=== PATIENT | female | born 1985 ===

== ENCOUNTER → 2020-06-07 | Outpatient (CLI) | payer OTHER | END | disposition home or self-care (01) | LOC: STAR 14:00 | PROVIDERS: ATTEND Anesthesiology | DX: Z20.822 Contact with and (suspected) exposure to COVID-19 (principal) | CPT/HCPCS: U0003 ==

== ENCOUNTER 2020-06-08 00:02 | Inpatient (IN) | payer OTHER ==
[~2020-06-08] VITALS: Ht 180.3 cm; Wt 96.0 kg
[2020-06-08] MEDS ORDERED: CALCIUM CARBONATE 500 MG TAB.CHEW PO PRN (00:30)
[2020-06-08] MEDS ORDERED: TERBUTALINE 1 MG/ML, 1ML SQ PRN (00:30)
[2020-06-08] MEDS ORDERED: FENTANYL PF 100 MCG/2ML IVPush PRN (00:30)
[2020-06-08] MEDS ORDERED: OXYTOCIN 30U/ 0.9% NaCL 500ML 500 ML IV ONE (00:30)
[2020-06-08] MEDS ORDERED: OXYTOCIN 30U/ 0.9% NaCL 500ML 500 ML IV PRN (00:30)
[2020-06-08] MEDS ORDERED: FENTANYL PF 100 MCG/2ML IV PRN (00:30)
[2020-06-08] MEDS ORDERED: D5%-LACTATED RINGERS 1,000 ML IV SCH (00:30)
[2020-06-08] MEDS ORDERED: TERBUTALINE 1 MG/ML, 1ML IVPush PRN (00:30)
[2020-06-08] MEDS ORDERED: LACTATED RINGERS 1,000 ML IV SCH ×2 (00:30→05:30)
[2020-06-08] MEDS ORDERED: ONDANSETRON 2MG/ML, 2ML IVPush PRN ×2 (00:30→05:30)
[2020-06-08] MEDS ORDERED: PLEASE ENTER ALLERGIES MC SCH (00:30)
[2020-06-08] MEDS ORDERED: PENICILLIN GK 5,000,000 UNITS in DEXTROSE 5% 100 ML IVPB ONE (00:30)
[2020-06-08] MEDS ORDERED: SODIUM CITRATE/CITRIC ACID 30 ML UDC PO PRN (00:30)
[2020-06-08] MEDS ORDERED: NEWBORN KIT ONE (00:34)
[2020-06-08] MEDS ORDERED: OXYTOCIN 30U/ 0.9% NaCL 500ML 500 ML ONE (00:34)
[2020-06-08] MEDS ORDERED: LIDOCAINE 1%, 20ML ONE (00:34)
[2020-06-08] MEDS ORDERED: MISOPROSTOL 200 MCG TABLET ONE (00:34)
[2020-06-08 00:41] LABS: BASOPHILS % (AUTO) 1 % (0-1); EOSINOPHILS % (AUTO) 2 % (1-7); LYMPHOCYTES % (AUTO) 17 % (22-44); MD NO; MEAN CORPUSCULAR HEMOGLOBIN 31.5 pg (27.0-34.8); MEAN CORPUSCULAR HGB CONC 34.2 g/dL (32.4-35.8); MEAN PLATELET VOLUME 9.1 fL (7.4-10.4); MONOCYTES % (AUTO) 10 % (2-9); NEUTROPHILS % (AUTO) 70 % (42-75); PLATELET COUNT 135 x10^3/uL (130-400); RED BLOOD COUNT 4.19 x10^6/uL (3.82-5.3); RED CELL DISTRIBUTION WIDTH 14.7 % (9.6-15.2)
[2020-06-08 02:02] LABS: ALANINE AMINOTRANSFERASE 22 U/L (12-78); ALBUMIN 2.7 g/dL (3.4-5.0); ANION GAP 8 mmol/L (5-15); CALCIUM 8.9 mg/dL (8.5-10.1); CHLORIDE 110 mmol/L (98-107); CREATININE 0.85 mg/dL (0.55-1.02)
[2020-06-08 02:04] LABS: ALKALINE PHOSPHATASE 191 U/L (45-117); BILIRUBIN,TOTAL 0.3 mg/dL (0.2-1.0); TOTAL PROTEIN 6.9 g/dL (6.4-8.2)
[2020-06-08] MEDS ORDERED: BUPIVACAINE 0.25% ONE (03:35)
[2020-06-08] MEDS ORDERED: FENTANYL/BUPIV./NS/PF 250 ML EPIDCONT ONE (03:35)
[2020-06-08 03:43] LABS: CREATININE,URINE RANDOM 48.6 mg/dL
[2020-06-08] MEDS: PENICILLIN GK 2,500,000 UNITS in DEXTROSE 5% 100 ML IVPB SCH ×3 (04:53→12:28)
[2020-06-08] MEDS ORDERED: EPHEDRINE 50 MG/ML, 1ML IVPush PRN (05:30)
[2020-06-08] MEDS ORDERED: FENTANYL/BUPIV./NS/PF 250 ML EPIDCONT SCH (05:30)
[2020-06-08] MEDS ORDERED: DIPHENHYDRAMINE 50 MG/ML, 1ML IVPush PRN (05:30)
[2020-06-08] MEDS ORDERED: LACTATED RINGERS 1,000 ML IVBOLUS PRN (05:30)
[2020-06-08] MEDS ORDERED: NALOXONE 0.4 MG/ML, 1ML IVPush PRN (05:30)
[2020-06-08] MEDS ORDERED: IBUPROFEN 600 MG TABLET ONE (16:13)
[2020-06-08] MEDS ORDERED: IBUPROFEN 200 MG TABLET PO ONE (16:30)
[2020-06-08] MEDS: AMPICILLIN 2 GM in SODIUM CHLORIDE 0.9% 100 ML IV SCH ×2 (16:59→22:59)
[2020-06-08] MEDS ORDERED: GENTAMICIN PER PHARMACY MC PRN (17:00)
[2020-06-08] MEDS ORDERED: PHARMACOKINETIC CONSULTATION MC ONE (17:30)
[2020-06-08] MEDS ORDERED: PHARMACOKINETIC MONITORING MC PRN (17:30)
[2020-06-08] MEDS ORDERED: GENTAMICIN 200 MG in SODIUM CHLORIDE 0.9% 50 ML IV ONE (17:30)
[2020-06-08 18:20] VITALS: BP 104/71
[2020-06-08 19:20] VITALS: BP 105/70
[2020-06-08] MEDS ORDERED: ACETAMINOPHEN 325 MG TABLET PO PRN (21:00)
[2020-06-08] MEDS: OXYTOCIN 30U/ 0.9% NaCL 500ML 500 ML IV SCH (21:00)
[2020-06-08] MEDS ORDERED: MISOPROSTOL 200 MCG TABLET PR PRN (21:00)
[2020-06-08] MEDS ORDERED: OXYcodone IR 5MG TABLET PO PRN (21:00)
[2020-06-08] MEDS ORDERED: SIMETHICONE 80 MG CHEW TAB PO PRN (21:00)
[2020-06-08] MEDS: IBUPROFEN 600 MG TABLET PO PRN (22:57)
[2020-06-08] MEDS: DOCUSATE 100 MG CAPSULE PO PRN (22:57)
[2020-06-08 23:40] VITALS: BP 103/69
[2020-06-09 01:16] LABS: BASOPHILS % (AUTO) 0 % (0-1); EOSINOPHILS % (AUTO) 0 % (1-7); LYMPHOCYTES % (AUTO) 9 % (22-44); MEAN CORPUSCULAR HEMOGLOBIN 31.5 pg (27.0-34.8); MEAN CORPUSCULAR HGB CONC 34.2 g/dL (32.4-35.8); MEAN PLATELET VOLUME 9.1 fL (7.4-10.4); MONOCYTES % (AUTO) 6 % (2-9); NEUTROPHILS % (AUTO) 85 % (42-75); PLATELET COUNT 115 x10^3/uL (130-400); RED BLOOD COUNT 2.86 x10^6/uL (3.82-5.3); RED CELL DISTRIBUTION WIDTH 14.8 % (9.6-15.2)
[2020-06-09] MEDS: GENTAMICIN 140 MG in SODIUM CHLORIDE 0.9% 50 ML IV SCH ×2 (01:46→10:14)
[2020-06-09 01:57] LABS: MD SCAN
[2020-06-09 03:50] VITALS: BP 100/64
[2020-06-09] MEDS: AMPICILLIN 2 GM in SODIUM CHLORIDE 0.9% 100 ML IV SCH ×2 (05:12→11:54)
[2020-06-09] MEDS: IBUPROFEN 600 MG TABLET PO PRN ×3 (05:12→17:35)
[2020-06-09] MEDS: OXYTOCIN 30U/ 0.9% NaCL 500ML 500 ML IV SCH ×2 (07:00→17:00)
[2020-06-09 07:55] VITALS: BP 98/64
[2020-06-09] MEDS ORDERED: PRENATAL VIT/IRON/FA 1 EACH TABLET PO SCH (09:00)
[2020-06-09] MEDS: DOCUSATE 100 MG CAPSULE PO PRN (10:13)
[2020-06-09 11:20] VITALS: BP 106/68
[2020-06-09 16:42] VITALS: BP 101/67
[2020-06-09 20:00] VITALS: BP_SYST 111; BP_SYST 115; BP_DIAS 67; BP_DIAS 70
[2020-06-10] MEDS: IBUPROFEN 600 MG TABLET PO PRN ×2 (00:19→06:14)
[2020-06-10] MEDS: OXYTOCIN 30U/ 0.9% NaCL 500ML 500 ML IV SCH (03:00)
[2020-06-10 07:30] VITALS: BP 103/69
[2020-06-10] MEDS ORDERED: IBUP-1222 PO (11:13)
[2020-06-10] MEDS ORDERED: DOCU-131 PO (11:14)
== END 2020-06-10 13:40 | disposition home or self-care (01) | DRG 768 ==
LOC: LDOP 00:02 → LDIP 00:21 → 2NW 18:01
PROVIDERS: ADMIT Obstetrics & Gynecology; ATTEND Obstetrics & Gynecology
PROC: 0DQR0ZZ Repair Anal Sphincter, Open Approach (ICD-10-PCS; principal; 2020-06-08)
PROC: 10E0XZZ Delivery of Products of Conception, External Approach (ICD-10-PCS; 2020-06-08)
PROC: 10907ZC Drainage of Amniotic Fluid, Therapeutic from Products of Conception, Via Natural or Artificial Opening (ICD-10-PCS; 2020-06-08)
PROC: 3E0R3BZ Introduction of Anesthetic Agent into Spinal Canal, Percutaneous Approach (ICD-10-PCS; 2020-06-08)
PROC: 00HU33Z Insertion of Infusion Device into Spinal Canal, Percutaneous Approach (ICD-10-PCS; 2020-06-08)
DX: O99.824 Streptococcus B carrier state complicating childbirth (principal); Z37.0 Single live birth; Z3A.39 39 weeks gestation of pregnancy; Z83.3 Family history of diabetes mellitus; O70.20 Third degree perineal laceration during delivery, unspecified; Z82.49 Family history of ischemic heart disease and other diseases of the circulatory system; Z83.42 Family history of familial hypercholesterolemia; Z79.899 Other long term (current) drug therapy
CPT/HCPCS: 36415; 80053; 82570; 82803; 84156; 84550; 85025; 86592; 86850; 86900; G0378; J0290; J2405; J2540; J1580; J2590; J3010; J7120